=== PATIENT | male | born 1990 | race Caucasian/White ===

== ENCOUNTER 2020-03-26 19:53 | Emergency (ER) | payer OTHER, SELFPAY ==
[2020-03-26 20:14] VITALS: BP 140/60; PULSE 92; RESP 16; TEMP 36.9; O2SAT 98; BMI 55.3
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
[2020-03-26] MEDS: Amoxicillin/Potassium Clav 875 MG TABLET PO (20:44)
== END 2020-03-26 21:00 | disposition home or self-care (01) ==
PROVIDERS: Emergency Provider Emergency Medicine; PCP Internal Medicine
DX: S51.051A Open bite, right elbow, initial encounter (principal); Y04.1XXA Assault by human bite, initial encounter; Y93.89 Activity, other specified; Y92.238 Other place in hospital as the place of occurrence of the external cause; Y99.0 Civilian activity done for income or pay
CPT/HCPCS: 90471; 90715; 99283; 99284

== ENCOUNTER 2020-05-06 16:37 | Outpatient (REF) | payer OTHER, SELFPAY ==
[2020-05-06 18:05] LABS: COVID-19 Test Negative (Negative)
== END 2020-05-06 16:38 | disposition home or self-care (01) ==
LOC: HO.EMPCOV 16:37
PROVIDERS: Visit Provider Internal Medicine
DX: Z20.828 Contact with and (suspected) exposure to other viral communicable diseases (principal)
CPT/HCPCS: 87635; C9803

== ENCOUNTER 2020-06-23 15:16 | Outpatient (RCR) | payer OTHER, SELFPAY ==
[2020-06-29 09:37] LABS: SARS-COV-2 PCR UMBRL Not Detected
[2020-07-10 10:00] LABS: SARS-COV-2 PCR UMBRL NEGATIVE
== END 2020-06-23 15:17 | disposition home or self-care (01) ==
LOC: HO.EMPCOV 15:16
PROVIDERS: Visit Provider Internal Medicine
DX: Z20.828 Contact with and (suspected) exposure to other viral communicable diseases (principal)
CPT/HCPCS: 36415; C9803; U0003

== ENCOUNTER 2021-06-27 17:55 | Outpatient (REF) | payer OTHER, SELFPAY ==
[2021-06-27 18:26] LABS: COVID-19 Test Negative (Negative)
== END 2021-06-27 17:56 | disposition home or self-care (01) ==
LOC: HO.LAB 17:55
PROVIDERS: PCP Internal Medicine; Visit Provider Internal Medicine
DX: Z20.822 Contact with and (suspected) exposure to COVID-19 (principal)
CPT/HCPCS: 87635

== ENCOUNTER 2021-07-02 14:56 | Outpatient (REF) | payer OTHER, SELFPAY ==
[2021-07-02 15:22] LABS: COVID-19 Test Positive (Negative)
== END 2021-07-02 14:57 | disposition home or self-care (01) ==
LOC: HO.LAB 14:56
PROVIDERS: Referring Provider Internal Medicine; Visit Provider Internal Medicine
DX: Z20.822 Contact with and (suspected) exposure to COVID-19 (principal)
CPT/HCPCS: 87635; C9803